=== PATIENT | male | born 1995 | race Caucasian/White ===

== ENCOUNTER 2017-08-21 02:33 | Emergency (ER) | payer OTHER ==
[~2017-08-21] VITALS: Ht 180.3 cm; Wt 63.5 kg
[~2017-08-21 02:33] MED LIST: CEPHALEXIN 500500 M3 PO; IBUPROFEN 600600 M1 PO
[2017-08-21] MEDS ORDERED: NOHOMEMEDICATIONS (02:46)
[2017-08-21] MEDS ORDERED: AMOXICILLIN 50500 M1 PO (03:21)
[2017-08-21 03:28] VITALS: BP 126/80
== END 2017-08-21 03:28 | disposition home or self-care (01) ==
LOC: M.ERS 02:33
DX: R51 Headache (principal); J45.909 Unspecified asthma, uncomplicated; F17.210 Nicotine dependence, cigarettes, uncomplicated; Z98.890 Other specified postprocedural states

== ENCOUNTER 2017-09-04 20:48 | Emergency (ER) | payer OTHER ==
[~2017-09-04] VITALS: Ht 180.3 cm; Wt 63.5 kg
[~2017-09-04 20:48] MED LIST changes: +AMOXICILLIN 50500 M1 PO; +NOHOMEMEDICATIONS
[2017-09-04 20:53] VITALS: BP 115/62
[2017-09-04] MEDS ORDERED: TYLENOL EXTRA500 MG PO (21:07)
[2017-09-04] MEDS ORDERED: IBUPROFEN 600600 M1 PO (21:07)
[2017-09-04] MEDS ORDERED: PROMETHAZINE V473 ML PO (21:07)
[2017-09-04] MEDS ORDERED: TESSALON PERLE100 MG PO (21:07)
== END 2017-09-04 21:25 | disposition home or self-care (01) ==
LOC: M.ERS 20:48
DX: J11.1 Influenza due to unidentified influenza virus with other respiratory manifestations (principal); F17.210 Nicotine dependence, cigarettes, uncomplicated; J45.909 Unspecified asthma, uncomplicated; Z98.890 Other specified postprocedural states

== ENCOUNTER 2021-03-07 20:42 | Emergency (ER) | payer OTHER ==
[~2021-03-07] VITALS: Ht 182.9 cm; Wt 68.0 kg
[~2021-03-07 20:42] MED LIST changes: +PROMETHAZINE V473 ML PO; +TESSALON PERLE100 MG PO; +TYLENOL EXTRA500 MG PO
[2021-03-07 22:39] VITALS: BP 110/75
== END 2021-03-07 22:41 | disposition home or self-care (01) ==
LOC: M.ERS 20:42
DX: U07.1 COVID-19 (principal); J45.909 Unspecified asthma, uncomplicated; F17.210 Nicotine dependence, cigarettes, uncomplicated; Z90.49 Acquired absence of other specified parts of digestive tract

== ENCOUNTER 2021-09-13 20:04 | Emergency (ER) | payer OTHER ==
[~2021-09-13] VITALS: Ht 182.9 cm; Wt 68.0 kg
[2021-09-13] MEDS ORDERED: NORFLEX100 MG PO (20:34)
[2021-09-13] MEDS ORDERED: IBUPROFEN 800800 M1 PO (20:34)
[2021-09-13 21:09] VITALS: BP 120/69
== END 2021-09-13 21:10 | disposition home or self-care (01) ==
LOC: M.ERS 20:04
DX: M77.8 Other enthesopathies, not elsewhere classified (principal); M79.641 Pain in right hand; J45.909 Unspecified asthma, uncomplicated; F17.210 Nicotine dependence, cigarettes, uncomplicated; Z90.49 Acquired absence of other specified parts of digestive tract